=== PATIENT | female | born 1980 | race Caucasian/White ===

== ENCOUNTER 2016-12-12 09:14 | Emergency (ER) | payer SELFPAY ==
[~2016-12-12] VITALS: Ht 175.3 cm; Wt 142.9 kg
[2016-12-12 09:20] VITALS: BP_SYST 155
[2016-12-12 09:55] VITALS: BP_SYST 127
== END 2016-12-12 09:55 | disposition home or self-care (01) ==
LOC: SED 09:14
DX: Z76.0 Encounter for issue of repeat prescription (principal); I10 Essential (primary) hypertension
CPT/HCPCS: 81025; 99283